=== PATIENT | male | born 1930 | race Caucasian/White ===

== ENCOUNTER 2018-09-10 12:38 | Outpatient (CLI) | payer MEDICARE ==
--- NOTE | 2018-09-10 14:21 | RAD ---
PA AND LATERAL CHEST: HISTORY: Dyspnea. COMPARISON: 10/30/2004 study, most recent study available for comparison. FINDINGS: Heart size appears borderline. There are atherosclerotic changes of the aorta. Chronic lung changes are seen. No focal infiltrative process. Bones are demineralized. There are compression changes o f the lower thoracic vertebral bodies, age indeterminate. There are also some minimal compression ch anges of one of the midthoracic vertebral bodies, approximately T5 and T7. IMPRESSION: 1. Diffuse bony demineralization with some compression changes of some of the thoracic vertebral bod ies. 2. Chronic-appearing lung change. POS: [facility]
== END 2018-09-10 12:39 | disposition home or self-care (01) ==
LOC: RAD 12:38
PROVIDERS: ATTEND Internal Medicine Critical Care Medicine
DX: R06.00 Dyspnea, unspecified (principal)
CPT/HCPCS: 71046